=== PATIENT | female | born 1985 | race Two or more races ===

== ENCOUNTER 2017-04-24 06:31 | Inpatient (IN) | payer MEDICAID, OTHER ==
[~2017-04-24] VITALS: Ht 160 cm; Wt 60.1 kg
[2017-04-24 06:47] VITALS: BP 127/63; PULSE 72; RESP 16; TEMP 98.7; O2SAT 100
[2017-04-24 07:01] LABS: AUTOMATED NEUTROPHIL # 6.9 TH/MM3 (1.8-7.7); BASOPHIL % 0.2 % (0.0-2.0); HEMATOCRIT 38.5 % (35.0-46.0); HEMO FLAGS DIFF FINAL; LYMPHOCYTE # 1.6 TH/MM3 (1.0-4.8); MEAN CELL VOLUME 84.5 FL (80.0-100.0); MEAN CORPUSCULAR HEMOGLOBIN 28.3 PG (27.0-34.0); MEAN CORPUSCULAR HGB CONC 33.5 % (32.0-36.0); MONO % 8.6 % (0.0-8.0); NEUT % 74.2 % (16.0-70.0); PLATELET COUNT 215 TH/MM3 (150-450); RED BLOOD COUNT 4.56 MIL/MM3 (4.00-5.30); RED CELL DISTRIBUTION WIDTH 14.2 % (11.6-17.2); WHITE BLOOD COUNT 9.4 TH/MM3 (4.0-11.0)
--- NOTE | 2017-04-24 07:20 | PD ---
HPI Chief Complaint: Psychiatric Symptoms Time Seen by Provider: 07:10 Travel History International Travel<30 days: No Contact w/Intl Traveler<30days: No Traveled to known affect area: No History of Present Illness HPI 32-year-old female presents to the emergency department under [place] act. Apparently the patient's in the past few days and she is here with her brother. According to law enforcement report her brother, Francisco J Davis, contacted the police because his sister, the patient, was "going to [employer] in [facility] on [address] to commit suicide." The patient herself also called dispatchers and stated she "was going to and that people were going to shoot her, and that she had her kids in the car." [facility] attempted a traffic stop to conduct a welfare check, but the patient did not stop and proceeded driving [address]bound on . 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 She continues to answer "I don't know" when I asked her what happened. She is alert and oriented to time and self. She is not oriented to place. She does not know where she is. She does know she is in [place]. She says she is here visiting a friend. She denies being suicidal or homicidal; he does not recall making any statements that she wanted to . When I ask her about her she says that he has but she doesn't recall when. She reports feeling depressed and says she has history of depression without medication. Reports hearing voices at times. Denies visual hallucinations. Denies EtOH or illicit drug use. Last menstrual period was last month. Denies risk of . States she has twin girls that are 7 years old. She does state that she is hungry and feels dizzy. She has no other medical complaints. She denies chest pain, shortness of breath, abdominal pain, change in urinary stool. No known relieving or aggravating factors. No known allergies. Has no other medical complaints. No other modifying factors or associated signs and symptoms. [facility] Past Medical History Medical History: Denies Significant Hx Immunizations Current: Yes ?: Not LMP: 03/27/17 Past Surgical History Surgical History: No Previous Surgery Social History Alcohol Use: Yes Tobacco Use: No Substance Use: No Allergies-Medications (Allergen,Severity, Reaction): Coded Allergies: No Known Allergies (Unverified , 04/24/17) Reported Meds & Prescriptions Reported Meds & Active Scripts Active No Active Prescriptions or Reported Medications Review of Systems Except as stated in HPI: all other systems reviewed are Neg Physical Exam Narrative GENERAL: Well-nourished, well-developed female patient, in no acute distress SKIN: Warm and dry. HEAD: Atraumatic. Normocephalic. EYES: Pupils equal and round. ENT: Mucosa pink and moist. NECK: Supple. Trachea midline. CARDIOVASCULAR: Regular rate and rhythm. No murmur appreciated. RESPIRATORY: No accessory muscle use. Clear to auscultation. Breath sounds equal bilaterally. GASTROINTESTINAL: Abdomen soft, non-tender, nondistended. Hepatic and splenic margins not palpable. Bowel sounds are active 4 quadrants. MUSCULOSKELETAL: No obvious deformities. No clubbing. No cyanosis. No edema. BACK: No CVA tenderness. NEUROLOGICAL: Awake and alert. Oriented 3; self, time, President. No obvious cranial nerve deficits. Motor grossly within normal limits. Normal speech. Moves all extremities. 5/5 strength to all extremities. PSYCHIATRIC: Flat affect. No delusional thought processes. No hallucinations. Data Data Last Documented VS Vital Signs Date Time Temp Pulse Resp B/P (MAP) Pulse Ox O2 Delivery O2 Flow Rate FiO2 04/24/17 06:47 98.7 72 16 127/63 (84) 100 Orders Orders Complete Blood Count With Diff (04/24/17 06:45) Comprehensive Metabolic Panel (04/24/17 06:45) Ed Urine Pregnancytest Poc (04/24/17 06:45) Psych Screen (04/24/17 06:45) Drug Screen, Random Urine (04/24/17 06:45) Alcohol (Ethanol) (04/24/17 06:45) Salicylates (Aspirin) (04/24/17 06:45) Tylenol (Acetaminophen) (04/24/17 06:45) Urinalysis - C+S If Indicated (04/24/17 07:19) Diet Regular Basic (04/24/17 Breakfast) Potassium Chloride (Kcl) (04/24/17 07:45) Ct Brain W/O Iv Contrast(Rout) (04/24/17 ) Labs Laboratory Tests Test 04/24/17 06:40 04/24/17 06:45 Urine Opiates Screen NEG Urine Barbiturates Screen NEG Urine Amphetamines Screen NEG Urine Benzodiazepines Screen NEG Urine Cocaine Screen NEG Urine Cannabinoids Screen NEG White Blood Count 9.4 TH/MM3 Red Blood Count 4.56 MIL/MM3 Hemoglobin 12.9 GM/DL Hematocrit 38.5 % Mean Corpuscular Volume 84.5 FL Mean Corpuscular Hemoglobin 28.3 PG Mean Corpuscular Hemoglobin Concent 33.5 % Red Cell Distribution Width 14.2 % Platelet Count 215 TH/MM3 Mean Platelet Volume 8.6 FL Neutrophils (%) (Auto) 74.2 % Lymphocytes (%) (Auto) 17.0 % Monocytes (%) (Auto) 8.6 % Eosinophils (%) (Auto) 0.0 % Basophils (%) (Auto) 0.2 % Neutrophils # (Auto) 6.9 TH/MM3 Lymphocytes # (Auto) 1.6 TH/MM3 Monocytes # (Auto) 0.8 TH/MM3 Eosinophils # (Auto) 0.0 TH/MM3 Basophils # (Auto) 0.0 TH/MM3 CBC Comment DIFF FINAL Differential Comment Blood Urea Nitrogen 7 MG/DL Creatinine 0.81 MG/DL Random Glucose 90 MG/DL Total Protein 7.9 GM/DL Albumin 4.3 GM/DL Calcium Level 9.0 MG/DL Alkaline Phosphatase 44 U/L Aspartate Amino Transf (AST/SGOT) 18 U/L Alanine Aminotransferase (ALT/SGPT) 21 U/L Total Bilirubin 1.2 MG/DL Sodium Level 138 MEQ/L Potassium Level 2.9 MEQ/L Chloride Level 106 MEQ/L Carbon Dioxide Level 22.2 MEQ/L Anion Gap 10 MEQ/L Estimat Glomerular Filtration Rate 82 ML/MIN Salicylates Level LESS THAN 1.7 MG/DL Acetaminophen Level LESS THAN 2.0 MCG/ML Ethyl Alcohol Level LESS THAN 3 MG/DL MDM Medical Decision Making Medical Screen Exam Complete: Yes Emergency Medical Condition: Yes Medical Record Reviewed: Yes Differential Diagnosis Psychosis, severe depression, suicidal ideation, medical clearance for psychiatric evaluation Narrative Course Patient presents under a Avina act. Physical examination and vital signs are essentially unremarkable. Patient has no medical complaints to report. Psych screen has been ordered. If the laboratory results are unremarkable, the patient will be medically cleared for psychiatric evaluation and disposition. 0745: CBC unremarkable. Potassium 2.9. 40 MEQ potassium chloride ordered. 0834: CT head normal Examination. Drug screen and EtOH negative. Diagnosis Primary Impression: Medical clearance for psychiatric admission Scripts No Active Prescriptions or Reported Meds Condition: Stable Jailene Ibarra Apr 24, 2017 07:20
[2017-04-24 07:36] LABS: ALKALINE PHOSPHATASE 44 U/L (45-117); ALT (GPT) 21 U/L (10-53); ANION GAP 10 MEQ/L (5-15); AST (GOT) 18 U/L (15-37); BICARBONATE 22.2 MEQ/L (21.0-32.0); BLOOD UREA NITROGEN 7 MG/DL (7-18); CHLORIDE 106 MEQ/L (98-107); GLOMERULAR FILTRATION RATE 82 ML/MIN (>89); SODIUM (NA) 138 MEQ/L (136-145); TOTAL BILIRUBIN ADULT 1.2 MG/DL (0.2-1.0)
[2017-04-24 07:38] LABS: ACETAMINOPHEN LESS THAN 2.0 MCG/ML (10.0-30.0); ALCOHOL LESS THAN 3 MG/DL (0-5)
[2017-04-24 07:40] LABS: POTASSIUM 2.9 MEQ/L (3.5-5.1)
[2017-04-24] MEDS ORDERED: POTASSIUM CHLORIDE 20 MEQ CONTROLLED RELEASE TAB PO ONE (07:45)
--- NOTE | 2017-04-24 08:09 | RADRPT ---
EXAM DATE/TIME: 04/24/2017 07:59 [facility] COMPARISON: No previous studies available for comparison. INDICATIONS : Altered mental staus. RADIATION DOSE: 48.73 CTDIvol (mGy) MEDICAL HISTORY : Psych issues SURGICAL HISTORY : None. ENCOUNTER: Initial ACUITY: 1 day PAIN SCALE: 0/10 LOCATION: cranial TECHNIQUE: Multiple contiguous axial images were obtained of the head. Using automated exposure control and adj ustment of the mA and/or kV according to patient size, radiation dose was kept as low as reasonably a chievable to obtain optimal diagnostic quality images. DICOM format image data is available electro nically for review and comparison. FINDINGS: CEREBRUM: The ventricles are normal for age. No evidence of midline shift, mass lesion, hemorrhage or acute in farction. No extra-axial fluid collections are seen. POSTERIOR FOSSA: The cerebellum and brainstem are intact. The 4th ventricle is midline. The cerebellopontine angle i s unremarkable. EXTRACRANIAL: The visualized portion of the orbits is intact. SKULL: The calvaria is intact. No evidence of skull fracture. CONCLUSION: Normal examination. Jaron Barr MD on April 24, 2017 at 8:05 Board Certified Radiologist. This report was verified electronically.
[2017-04-24 09:32] LABS: BACTERIA, URINE MOD /hpf; BLOOD, URINE TRACE (NEG); COMMENT (UR) CULTURE INDICATED; CULTURE IF INDICATED CULTURE INDICATED; GLUCOSE,URINE TRACE mg/dL (NEG); HYALINE CAST, URINE 3 /lpf (RARE); KETONE, URINE 80 mg/dL (NEG); MUCUS URINE FEW /lpf (OCC); NITRITE,URINE NEG (NEG); PH, URINE 5.5 (5.0-8.5); SQUAMOUS EPITHELIAL CELL URINE 2 /hpf (0-5); TRANSITIONAL EPI CELLS, URINE <1 /hpf; URINE COLOR YELLOW (YELLW/STRAW)
[2017-04-24 10:00] VITALS: BP 102/54; PULSE 94; RESP 20; TEMP 99.4; O2SAT 98
[2017-04-24] MEDS ORDERED: HALOPERIDOL LACTATE 5 MG/ML AMP IM ONE (10:15)
[2017-04-24] MEDS ORDERED: clonazePAM 1 MG TAB PO ONE (10:30)
[2017-04-24] MEDS: CEPHALEXIN MONOHYDRATE 500 MG CAP PO SCH ×3 (10:38→21:19)
[2017-04-24] MEDS ORDERED: LORazepam 2 MG/ML VIAL IM ONE (11:30)
[2017-04-24] MEDS ORDERED: LORazepam 2 MG/ML VIAL IM PRN (12:45)
[2017-04-24] MEDS ORDERED: ALUMINUM/MAGNESIUM/SIMETH 30 ML CUP PO PRN (12:45)
[2017-04-24] MEDS ORDERED: ACETAMINOPHEN 325 MG TAB PO PRN (12:45)
[2017-04-24] MEDS ORDERED: MAGNESIUM HYDROXIDE SUSP 30 ML CUP PO PRN (12:45)
[2017-04-24] MEDS ORDERED: LORazepam 1 MG TAB PO PRN (12:45)
--- NOTE | 2017-04-24 13:58 | PD.CONS ---
[facility] By [facility] Vall[facility] Reason for Consult Medical management Primary Care Physician No Primary Care Physician Diagnoses: History of Present Illness 32-year-old female brought to the emergency department under Avina act. The police were contacted by the patient's brother because the patient was supposedly going to commit suicide. The patient states she "only wants to talk to her children." She is crying and very upset that she is being kept here against her will. Lab work in the ED this morning was significant for a potassium of 2.9 and a UA consistent with urinary tract infection. [facility] consulted for medical management. Review of Systems Denies fever or chills Denies blurry vision, otorrhea, rhinorrhea Denies sore throat and cough No chest pain, palpitations, shortness of breath No abdominal pain Denies constipation/diarrhea/nausea/vomiting Denies muscle pain/weakness No rashes Past Family Social History Allergies: Coded Allergies: No Known Allergies (Unverified , 04/24/17) Past Medical History None Past Surgical History None Reported Medications None Family History Denies family history of coronary artery disease and diabetes mellitus. Social History Denies tobacco, alcohol and illicit drugs. Physical Exam Vital Signs Vital Signs Date Time Temp Pulse Resp B/P (MAP) Pulse Ox O2 Delivery O2 Flow Rate FiO2 04/24/17 10:00 99.4 94 20 102/54 (70) 98 Room Air 04/24/17 06:47 98.7 72 16 127/63 (84) 100 Physical Exam GENERAL: Agitated female crying, standing in her room SKIN: No rashes, ecchymoses or lesions. Cool and dry. HEAD: Atraumatic. Normocephalic. No temporal or scalp tenderness. EYES: Pupils equal round and reactive. Extraocular motions intact. No scleral icterus. No injection or drainage. ENT: Nose without bleeding, purulent drainage or septal hematoma. Throat without erythema, tonsillar hypertrophy or exudate. Uvula midline. Airway patent. NECK: Trachea midline. No JVD or lymphadenopathy. Supple, nontender, no meningeal signs. CARDIOVASCULAR: Regular rate and rhythm without murmurs, gallops, or rubs. RESPIRATORY: Clear to auscultation. Breath sounds equal bilaterally. No wheezes , rales, or rhonchi. GASTROINTESTINAL: Abdomen soft, non-tender, nondistended. No hepato-splenomegaly , or palpable masses. No guarding. : No CVA tenderness MUSCULOSKELETAL: Extremities without clubbing, cyanosis, or edema. No joint tenderness, effusion, or edema noted. No calf tenderness. Negative Homans sign bilaterally. NEUROLOGICAL: Awake and alert. Cranial nerves II through XII intact. Motor and sensory grossly within normal limits. Pressured speech. Patient oriented to self and states she is in [place]. Inappropriate insight and judgment. Laboratory Laboratory Tests Test 04/24/17 06:40 04/24/17 06:45 Urine Color YELLOW Urine Turbidity CLEAR Urine pH 5.5 Urine Specific Paton 1.018 Urine Protein TRACE Urine Glucose (UA) TRACE Urine Ketones 80 Urine Occult Blood TRACE Urine Nitrite NEG Urine Bilirubin NEG Urine Urobilinogen LESS THAN 2.0 Urine Leukocyte Esterase TRACE Urine RBC 1 Urine WBC 3 Urine Squamous Epithelial Cells 2 Urine Transitional Epithelial Cells <1 Urine Amorphous Sediment RARE Urine Bacteria MOD Urine Hyaline Casts 3 Urine Mucus FEW Microscopic Urinalysis Comment CULTURE INDICATED Urine Opiates Screen NEG Urine Barbiturates Screen NEG Urine Amphetamines Screen NEG Urine Benzodiazepines Screen NEG Urine Cocaine Screen NEG Urine Cannabinoids Screen NEG White Blood Count 9.4 Red Blood Count 4.56 Hemoglobin 12.9 Hematocrit 38.5 Mean Corpuscular Volume 84.5 Mean Corpuscular Hemoglobin 28.3 Mean Corpuscular Hemoglobin Concent 33.5 Red Cell Distribution Width 14.2 Platelet Count 215 Mean Platelet Volume 8.6 Neutrophils (%) (Auto) 74.2 Lymphocytes (%) (Auto) 17.0 Monocytes (%) (Auto) 8.6 Eosinophils (%) (Auto) 0.0 Basophils (%) (Auto) 0.2 Neutrophils # (Auto) 6.9 Lymphocytes # (Auto) 1.6 Monocytes # (Auto) 0.8 Eosinophils # (Auto) 0.0 Basophils # (Auto) 0.0 CBC Comment DIFF FINAL Differential Comment Blood Urea Nitrogen 7 Creatinine 0.81 Random Glucose 90 Total Protein 7.9 Albumin 4.3 Calcium Level 9.0 Alkaline Phosphatase 44 Aspartate Amino Transf (AST/SGOT) 18 Alanine Aminotransferase (ALT/SGPT) 21 Total Bilirubin 1.2 Sodium Level 138 Potassium Level 2.9 Chloride Level 106 Carbon Dioxide Level 22.2 Anion Gap 10 Estimat Glomerular Filtration Rate 82 Salicylates Level LESS THAN 1.7 Acetaminophen Level LESS THAN 2.0 Ethyl Alcohol Level LESS THAN 3 Date/Time Source Procedure Growth Status 04/24/17 06:40 Urine Random Urine Urine Culture Pending Received Result Diagram: 04/24/17 0645 04/24/1745 Assessment and Plan Assessment and Plan 32-year-old female with no past medical history presents under Avina act. [facility] consulted for medical management. 1. Suicidal ideation/psychosis Management per psychiatry 2. Hypokalemia Potassium 2.9 Status post by mouth supplementation in the ED Follow-up BMP 3. UTI UA consistent with urinary tract infection Urine cultures pending Continue Keflex, follow-up urine cultures Rachelle Morin MD Apr 24, 2017 13:58
[2017-04-24 14:15] VITALS: BP 123/67; PULSE 74; RESP 16; TEMP 98.3; O2SAT 97
[2017-04-25 06:24] VITALS: BP 117/67; PULSE 98; RESP 17; TEMP 98; O2SAT 97
[2017-04-25] MEDS: CEPHALEXIN MONOHYDRATE 500 MG CAP PO SCH ×3 (08:11→20:48)
--- NOTE | 2017-04-25 11:11 | PD.TTN ---
Patient Problems 1. Discharge planning 2. Medication compliance 3. Knowledge deficit 4. Lack of coping skills Progress Toward Goals Provider Present: Dr. Luis Alfredo Lozano Provider Input: Pt is new to the unit and will be evaluated including medication regiment. Nurse(s) Present: [place] Nurse(s) Input: Pt is new to the unit and is being evaluated and monitored. Psychiatric Counselors Present: TIMO Riley Psych Therapist Input: Pt is new and will be evaluated using biopsychosocial assessment. Group Spec/RT/OT/ORELLANA Present: REYNA Rader Group Spec/RT/OT/ORELLANA Input: Pt is new and will be encouraged to attend unit activities. Pt will be evaluated as well. Discharge Plan SMA Discharged planning will be finalized further as pt treatment continues. Documentation Scribe: TIMO Riley Jonathan LMHC Apr 25, 2017 11:11
--- NOTE | 2017-04-25 11:47 | HHI.HP ---
Provisional Diagnosis Admission Date Apr 24, 2017 at 12:33 [place] I. 1. Brief psychotic disorder Rule out primary psychotic disorder or mood disorder with psychotic features Rule out acute stress reaction/adjustment disorder [place] II. Deferred Certification of Person's Competence To Provide Express and Informed Consent I have personally examined Danni Edwards , a person being served at [facility] on, Apr 25, 2017 11:47. Express and informed consent means consent voluntarily given in writing, by a competent person, after sufficient explanation and disclosure of the subject matter involved to enable the person to make a knowing and willful decision without any element of force, fraud, deceit, duress, or other form of constraint or coercion. This person is 18 years of age or older, is not now known to be incompetent to consent to treatment with a guardian advocate, and does not have a health care surrogate or proxy currently making medical treatment decisions. I have found this person to be one of the following: [] Competent to provide express and informed consent, as defined above, for voluntary admission to this facility and is competent to provide express and informed consent for treatment. He/she has the consistent capacity to make well reasoned, willful, and knowing decisions concerning his or her medical or mental health treatment. The person fully and consistently understands the purpose of the admission for examination/placement and is fully capable of personally exercising all rights assured [place] [x] Incompetent to provide express and informed consent to voluntary admission, and this is incompetent to provide express and informed consent to treatment. The person must be transferred to involuntary status and a petition for a guardian advocate filed with the Circuit Court. [] Refusing to provide express and informed consent to voluntary admission but is competent to provide express and informed consent for treatment. The person must be discharged or transferred to involuntary status. Form shall be completed within 24 hours of a person's arrival at the receiving facility and filed in the clinical record of each person: 1. Admitted on a voluntary basis 2. Permitted to provide express and informed consent to his/her own treatment 3. Allowed to transfer from involuntary to voluntary status 4. Prior to permitting a person to consent to his or her own treatment after having been previously found incompetent to consent to treatment. History of Present Illness Capacity: Lacks Capacity HPI Ms. Edwards is a 32-year-old female of uncertain past psychiatric history who presents under a [place] act by law enforcement. Avina Act is quite extensive and alleges that patient's brother called in report that patient was suicidal, that patient herself called 911 and said people were trying to shoot her, and that patient was finally found topless in her car with her children in back seat. Psychiatric screener's note suggests that patient's recently . Reviewing our electronic medical record, it appears this is patient's first visit to [place]. Patient seen and examined with nurse. Chart reviewed. I see a completed 1st opinion from Dr. Valles, but there is no H&P from him. I have therefore seen patient for H&P today. Case discussed with nursing staff. Patient noted by nurse to be responding to internal stimuli. Patient's behavior on unit has reportedly been quite disturbed. She apparently tried to get into a peer's room overnight and was in fact found laying on the floor of peer's room. No fall reported, no sexual or other untoward activity reported between patient and this male peer. She also has been exit seeking. On my exam, patient seems fearful. She remains frankly internally stimulated and pulls her gown up over her face and ears, as if to try to block out voices. She answers "I don't know " to most of my questions. She denies SI/HI now and says that she wants to live for her children. She is able to recall that she has children but cannot recall their ages. She is tearful and her affect is dysphoric. She seems quite paranoid. She remains exit seeking and tries to get the nurse and myself to take her off the unit for the interview. Psychiatric interview somewhat limited because of patient's degree of psychiatric impairment at present. No physical complaints. Past psychiatric history: Patient is unsure of previous psychiatric diagnoses. She does not remember whether she has a history of psychiatric admissions. She does not remember whether she has a history of suicide attempts. Given the patient's degree of psychiatric impairment of present I did endeavor to obtain collateral information from the patient's mother at the number listed in the EMR. I left a generic voicemail requesting a call back. Review of Systems ROS Limitations: Psychotic, Poor Historian Except as stated in HPI: all other systems reviewed are Neg Past Psych History Psychological trauma history No reported trauma history to me Violence risk - others (6 mos) Indeterminate. Psychotic and unpredictable. Violence risk - self (6 mos) Indeterminate. Psychotic and unpredictable. Substance Abuse History Drugs/Alcohol past 12 months Patient denies any abuse of drugs or alcohol. Urine toxicology screen was negative on presentation here, and alcohol level was undetectable. Past Family Social History Coded Allergies: No Known Allergies (Unverified , 04/24/17) Past Medical History See electronic medical record. Patient says "I don't remember" whether she has any medical issues or not. No Active Prescriptions or Reported Meds Current Medications Medications (Trade) Dose Ordered Sig/Mauro Route Start Time Stop Time Status Last Admin (Keflex) 500 mg BID PO 04/24/17 10:00 05/01/17 09:59 04/24/17 10:38 (Ativan) 1 mg Q6H PRN PO 04/24/17 12:45 04/24/17 13:41 (Ativan Inj) 1 mg Q6H PRN IM 04/24/17 12:45 (Tylenol) 650 mg Q4H PRN PO 04/24/17 12:45 (Milk Of Magnesia Liq) 30 ml DAILY PRN PO 04/24/17 12:45 (Mag-Al Plus Susp Liq) 30 ml Q6H PRN PO 04/24/17 12:45 Family Psych History "I don't know." Social History Repeatedly answers variations on "I don't remember" when asked about aspects of the social history. Patient's Strengths (min. 2) In a monitored setting. Verbally fluent. Physical Exam Physical exam completed by hospitalist management consultant. On my examination today, the patient appears to be in no acute physical distress. No motor abnormalities noted. Labs and vitals reviewed: Vital Signs Vital Signs Date Time Temp Pulse Resp B/P (MAP) Pulse Ox O2 Delivery O2 Flow Rate FiO2 04/25/17 06:24 98.0 98 17 117/67 (84) 97 04/24/17 10:00 Room Air Lab Results Item Value Date Time White Blood Count 9.4 TH/MM3 04/24/17 0645 Hemoglobin 12.9 GM/DL 04/24/17 0645 Platelet Count 215 TH/MM3 04/24/17 0645 Sodium Level 138 MEQ/L 04/24/17 0645 Potassium Level 2.9 MEQ/L *L 04/24/17 0645 Chloride Level 106 MEQ/L 04/24/17 0645 Carbon Dioxide Level 22.2 MEQ/L 04/24/17 0645 Blood Urea Nitrogen 7 MG/DL 04/24/17 0645 Creatinine 0.81 MG/DL 04/24/17 0645 Aspartate Amino Transf (AST/SGOT) 18 U/L 04/24/17 0645 Alanine Aminotransferase (ALT/SGPT) 21 U/L 04/24/17 0645 Alkaline Phosphatase 44 U/L L 04/24/17 0645 Urine Opiates Screen NEG 04/24/17 0640 Urine Barbiturates Screen NEG 04/24/17 0640 Urine Amphetamines Screen NEG 04/24/17 0640 Urine Benzodiazepines Screen NEG 04/24/17 0640 Urine Cocaine Screen NEG 04/24/17 06 Urine Cannabinoids Screen NEG 04/24/17 0640 Ethyl Alcohol Level LESS THAN 3 MG/DL 04/24/17 0645 Labs reviewed. Hypokalemia noted, repleted. Last Impressions Head CT 04/24/17 0000 Signed Impressions: Service Date/Time: Monday, April 24, 2017 07:59 - CONCLUSION: Normal examination. Jaron Barr MD UA reviewed. +LE but no pyuria. Cultures prelim negative x 24 hours. ED [id number] test negative. Labs ordered by Dr. Valles are listed as "in process." Mental Status Examination Appearance: Disheveled Consciousness: Alert, Vigilant Orientation: Person Motor Activity: Normal gait Speech: Unremarkable Language: Perseveration Attention and Concentration: Easily Distracted Memory: Impaired Mood: Other (dysphoric) Affect: Other (restricted, tearful) Thought Process & Associations: Disorganized Thought Content: Bizarre thinking, Hallucinations Hallucination Type: Auditory (appears frankly internally stimulated) Delusion Type: Paranoid Suicidal Ideation: No (unreliable to contract for safety) Suicidal Plan: No Suicidal Intention: No Homicidal Ideation: No (unreliable to contract for safety) Homicidal Plan: No Homicidal Intention: No Insight: Poor Judgment: Poor Assessment & Plan Problem List: (1) Brief psychotic disorder ICD Codes: F23 - Brief psychotic disorder Assessment & Plan 32-year-old female with psychiatric history as detailed above who is presently admitted to the inpatient psychiatric unit under a Avina act. On my examination today, the patient is floridly psychotic. Unclear if the patient has an underlying psychotic illness or possibly a mood disorder with psychotic features, or if current symptomatology is reflective of an acute stress reaction or adjustment disorder. Nothing in medical workup suggestive of general medical cause, and patient's urine toxicology is negative and she herself denies substance use. I will plan to admit the patient to the inpatient psychiatric unit for safety, observation and stabilization. Admit inpatient. Involuntary status. Since it is not clear that Dr. Valles evaluated patient, I have completed a new first opinion based on my own assessment. Consult for second opinion. Request healthcare surrogate and guardian advocate. Follow-up laboratories ordered by Dr. Valles. Patient refused EKG, and we will try to obtain this later when she is less symptomatic with respect to her psychosis. For her psychotic symptoms, I will begin empiric treatment with Zyprexa 5mg PO/IM. Continue Ativan as needed for anxiety. I will add Benadryl for any EPS. Continue Keflex pending final result of urine culture, although patient does not appear to have a UTI. Hospitalist input noted and appreciated. Given behavior on unit and unpredictability in her psychotic state, institute 1:1 precautions until condition improves. Vitals every shift. Counselor to see and obtain collateral. Disposition planning. Estimated length of stay: 7-9 days. Discharge Planning Pending psychiatric stabilization Request HC Surrog/Guard Advoc?: Yes Cristian Lozano MD Apr 25, 2017 11:47
[2017-04-25] MEDS ORDERED: diphenhydrAMINE HCL 50 MG CAP PO PRN (14:45)
[2017-04-25] MEDS ORDERED: diphenhydrAMINE HCL 50 MG/ML VIAL IM PRN (14:45)
[2017-04-25] MEDS ORDERED: OLANZapine IM 10 MG VIAL IM PRN (14:45)
[2017-04-25 17:33] VITALS: BP 113/56; PULSE 64; RESP 18; TEMP 98; O2SAT 99
[2017-04-25] MEDS: OLANZapine ODT 5 MG TAB PO SCH (20:48)
[2017-04-26 05:38] VITALS: BP 106/71; PULSE 63; RESP 16; TEMP 98; O2SAT 100
[2017-04-26] MEDS: CEPHALEXIN MONOHYDRATE 500 MG CAP PO SCH (09:00)
[2017-04-26 09:10] LABS: HEMATOCRIT 41.2 % (35.0-46.0); MEAN CELL VOLUME 84.7 FL (80.0-100.0); MEAN CORPUSCULAR HEMOGLOBIN 27.8 PG (27.0-34.0); MEAN CORPUSCULAR HGB CONC 32.9 % (32.0-36.0); PLATELET COUNT 201 TH/MM3 (150-450); RED BLOOD COUNT 4.86 MIL/MM3 (4.00-5.30); RED CELL DISTRIBUTION WIDTH 14.2 % (11.6-17.2); REVIEW FLAG FINAL; WHITE BLOOD COUNT 6.2 TH/MM3 (4.0-11.0)
[2017-04-26 09:41] LABS: ANION GAP 11 MEQ/L (5-15); BICARBONATE 25.5 MEQ/L (21.0-32.0); BLOOD UREA NITROGEN 8 MG/DL (7-18); CHLORIDE 104 MEQ/L (98-107); GLOMERULAR FILTRATION RATE 75 ML/MIN (>89); POTASSIUM 3.1 MEQ/L (3.5-5.1); SODIUM (NA) 140 MEQ/L (136-145)
[2017-04-26 09:42] LABS: ALT (GPT) 19 U/L (10-53); AST (GOT) 15 U/L (15-37)
[2017-04-26 10:08] LABS: ALKALINE PHOSPHATASE 44 U/L (45-117); HDL CHOLESTEROL 56.5 MG/DL (40.0-60.0); LDL CHOLESTEROL 112 MG/DL (0-99); TOTAL BILIRUBIN ADULT 1.4 MG/DL (0.2-1.0)
--- NOTE | 2017-04-26 11:26 | HHI.PYPN ---
Subjective Remarks Patient seen and examined with nurse. Chart reviewed. Case discussed in treatment team. On my examination today, I find the patient laying in bed with her head covered. She remains internally stimulated and fearful. She continues to answer questions for the most part with "I don't know." She denies any suicidal or homicidal ideation. She complains of some dizziness but otherwise denies side effects from medications. No other physical complaints. We checked orthostatics and patient is not orthostatic by BP or HR, and call to RN in afternoon reveals that patient is no longer complaining of dizziness. Review of Systems ROS Limitations: Psychotic, Poor Historian Except as stated in HPI: all other systems reviewed are Neg Mental Status Examination Appearance: Disheveled Consciousness: Alert, Vigilant Orientation: Person Motor Activity: Other (no hand tremor, no dystonia, no dyskinesia noted. No other motoric abnormalities noted.) Speech: Unremarkable Language: Perseveration Attention and Concentration: Easily Distracted Memory: Impaired Mood: Other (dysphoric) Affect: Other (restricted) Thought Process & Associations: Disorganized Thought Content: Bizarre thinking, Hallucinations, Delusional Hallucination Type: Other (internally stimulated) Delusion Type: Paranoid Suicidal Ideation: No (unreliable to contract for safety) Suicidal Plan: No Suicidal Intention: No Homicidal Ideation: No (unreliable to contract for safety) Homicidal Plan: No Homicidal Intention: No Insight: Poor Judgment: Poor Results Labs Test 04/26/17 08:27 White Blood Count 6.2 TH/MM3 Red Blood Count 4.86 MIL/MM3 Hemoglobin 13.5 GM/DL Hematocrit 41.2 % Mean Corpuscular Volume 84.7 FL Mean Corpuscular Hemoglobin 27.8 PG Mean Corpuscular Hemoglobin Concent 32.9 % Red Cell Distribution Width 14.2 % Platelet Count 201 TH/MM3 Mean Platelet Volume 8.7 FL Blood Urea Nitrogen 8 MG/DL Creatinine 0.88 MG/DL Random Glucose 99 MG/DL Total Protein 7.6 GM/DL Albumin 4.0 GM/DL Calcium Level 8.9 MG/DL Alkaline Phosphatase 44 U/L Aspartate Amino Transf (AST/SGOT) 15 U/L Alanine Aminotransferase (ALT/SGPT) 19 U/L Total Bilirubin 1.4 MG/DL Sodium Level 140 MEQ/L Potassium Level 3.1 MEQ/L Chloride Level 104 MEQ/L Carbon Dioxide Level 25.5 MEQ/L Anion Gap 11 MEQ/L Estimat Glomerular Filtration Rate 75 ML/MIN Triglycerides Level 50 MG/DL Cholesterol Level 178 MG/DL LDL Cholesterol 112 MG/DL HDL Cholesterol 56.5 MG/DL Cholesterol/HDL Ratio 3.15 RATIO Vitamin B12 Level 1061 PG/ML 25-Hydroxy Vitamin D Total 23.7 ng/ML Thyroid Stimulating Hormone 3rd Gen 1.860 uIU/ML Date/Time Source Procedure Growth Status 04/24/17 06:40 Urine Random Urine Urine Culture - Final 50-100,000 CFU/ML MIXED GRAM POSITIVE... Complete Labs reviewed. Urine culture reveals mixed cristobal. Ongoing hypokalemia, repleted. Decreased GFR. Vitamin D somewhat decreased and calcium level within normal limits. Vitals/IOs Vital Signs Date Time Temp Pulse Resp B/P (MAP) Pulse Ox O2 Delivery O2 Flow Rate FiO2 04/26/17 05:38 98.0 63 16 106/71 (83) 100 04/24/17 10:00 Room Air Assessment & Plan Problem List: (1) Brief psychotic disorder ICD Codes: F23 - Brief psychotic disorder Assessment & Plan: Dr. Buenrostro has suggested adding fugue state to differential. Psychotic symptoms remain prominent, and so I place dissociative phenomenon somewhat lower on the differential. Assessment & Plan In light of mild, transient dizziness I will continue Zyprexa as ordered for now with plans to titrate to target psychotic symptoms as tolerated. Check RPR and HIV as part of psychosis workup in addition to workup already performed. We will try to obtain EKG today for QTc. Replete K and check BMP and Mg in morning. Encourage fluids. Vitamin D supplement. D/c Keflex as culture is not consistent with UTI. Continue 1:1 for now; reassess tomorrow. Fall prec. Continue to monitor on the high acuity unit. Continue other medications and care as ordered. Justification for Cont. Inpt. Impairment in reality construction. Risk for decompensation and less restrictive environment. Discharge Planning Pending stabilization Request HC Surrog/Guard Advoc?: Yes Cristian Lozano MD Apr 26, 2017 11:26
[2017-04-26] MEDS ORDERED: POTASSIUM CHLORIDE 20 MEQ CONTROLLED RELEASE TAB PO ONE (11:30)
[2017-04-26 12:26] VITALS: BP_SYST 106; BP_SYST 108; BP_SYST 111; BP_DIAS 63; BP_DIAS 65; PULSE 78; PULSE 90; PULSE 93; RESP 18; TEMP 98
--- NOTE | 2017-04-26 12:57 | PD.PSY.CON ---
Provisional Diagnosis Admission Date Apr 24, 2017 at 12:33 [place] I. 1. Brief psychotic disorder Rule out primary psychotic disorder or mood disorder with psychotic features Rule out acute stress reaction/adjustment disorder [place] II. Deferred History of Present Illness Service Psychiatry Consult Requested By Dr. Lozano Reason for Consult Second opinion Primary Care Physician No Primary Care Physician HPI Ms. Edwards is a 32-year-old female of uncertain past psychiatric history who presents under a [place] act by law enforcement. Avina Act is quite extensive and alleges that patient's brother called in report that patient was suicidal, that patient herself called 911 and said people were trying to shoot her, and that patient was finally found topless in her car with her children in back seat. Psychiatric screener's note suggests that patient's recently . Reviewing our electronic medical record, it appears this is patient's first visit to [place]. Patient seen and examined with nurse. Chart reviewed. I see a completed 1st opinion from Dr. Valles, but there is no H&P from him. I have therefore seen patient for H&P today. Case discussed with nursing staff. Patient noted by nurse to be responding to internal stimuli. Patient's behavior on unit has reportedly been quite disturbed. She apparently tried to get into a peer's room overnight and was in fact found laying on the floor of peer's room. No fall reported, no sexual or other untoward activity reported between patient and this male peer. She also has been exit seeking. On my exam, patient seems fearful. She remains frankly internally stimulated and pulls her gown up over her face and ears, as if to try to block out voices. She answers "I don't know " to most of my questions. She denies SI/HI now and says that she wants to live for her children. She is able to recall that she has children but cannot recall their ages. She is tearful and her affect is dysphoric. She seems quite paranoid. She remains exit seeking and tries to get the nurse and myself to take her off the unit for the interview. Psychiatric interview somewhat limited because of patient's degree of psychiatric impairment at present. No physical complaints. Past psychiatric history: Patient is unsure of previous psychiatric diagnoses. She does not remember whether she has a history of psychiatric admissions. She does not remember whether she has a history of suicide attempts. Given the patient's degree of psychiatric impairment of present I did endeavor to obtain collateral information from the patient's mother at the number listed in the EMR. I left a generic voicemail requesting a call back. 04/26/17 - second opinion Patient is a 32-year-old woman unknown if domiciled, reported have 2 children, with unclear past psychiatric history, was brought in under [facility] for suicidal ideation after brother was concerned and called 911. As per chart patient was found topless in her car with the children in the backseat, recently , and patient endorsing paranoid ideations of people trying to shoot her. Patient was found sitting in the room, cooperative interview was telegraphic typewriter installer and nurse. Patient states that she does not remember anything prior to hospitalization. When asked to recall last event prior to coming to the hospital that she wears currently patient states "I don't know". Patient reports sleeping well, good appetite, mood being "good", endorses feeling sad and depressed along with feeling helpless and hopeless but denied any suicide ideations at this time.. Patient states he does not remember ages of her 2 daughters. When asked where she lives she states she does not remember when asked who her family is aware she was born any information to evaluate remote memory along with recent memory she states "I don't know". Patient alert and oriented to person at this time. Past Family Social History Coded Allergies: No Known Allergies (Unverified , 04/24/17) No Active Prescriptions or Reported Meds Current Medications Medications (Trade) Dose Ordered Sig/Mauro Route Start Time Stop Time Status Last Admin (Keflex) 500 mg BID PO 04/24/17 10:00 05/01/17 09:59 04/26/17 09:00 (Ativan) 1 mg Q6H PRN PO 04/24/17 12:45 04/24/17 13:41 (Ativan Inj) 1 mg Q6H PRN IM 04/24/17 12:45 (Tylenol) 650 mg Q4H PRN PO 04/24/17 12:45 (Milk Of Magnesia Liq) 30 ml DAILY PRN PO 04/24/17 12:45 (Mag-Al Plus Susp Liq) 30 ml Q6H PRN PO 04/24/17 12:45 (ZyPREXA ZYDIS ODT) 5 mg HS PO 04/25/17 21:00 04/25/17 20:48 (ZyPREXA INJ) 5 mg HS PRN IM 04/25/17 14:45 (Benadryl) 50 mg Q6H PRN PO 04/25/17 14:45 04/25/17 20:48 (Benadryl Inj) 50 mg Q6H PRN IM 04/25/17 14:45 Patient's Strengths (min. 2) In a monitored setting. Verbally fluent. Physical Exam Vital Signs Vital Signs Date Time Temp Pulse Resp B/P (MAP) Pulse Ox O2 Delivery O2 Flow Rate FiO2 04/26/17 12:26 98.0 78 18 106/65 (79) 111/63 (79) 108/63 (78) 04/26/17 05:38 100 04/24/17 10:00 Room Air Lab Results Test 04/26/17 08:27 White Blood Count 6.2 TH/MM3 Red Blood Count 4.86 MIL/MM3 Hemoglobin 13.5 GM/DL Hematocrit 41.2 % Mean Corpuscular Volume 84.7 FL Mean Corpuscular Hemoglobin 27.8 PG Mean Corpuscular Hemoglobin Concent 32.9 % Red Cell Distribution Width 14.2 % Platelet Count 201 TH/MM3 Mean Platelet Volume 8.7 FL Blood Urea Nitrogen 8 MG/DL Creatinine 0.88 MG/DL Random Glucose 99 MG/DL Total Protein 7.6 GM/DL Albumin 4.0 GM/DL Calcium Level 8.9 MG/DL Alkaline Phosphatase 44 U/L Aspartate Amino Transf (AST/SGOT) 15 U/L Alanine Aminotransferase (ALT/SGPT) 19 U/L Total Bilirubin 1.4 MG/DL Sodium Level 140 MEQ/L Potassium Level 3.1 MEQ/L Chloride Level 104 MEQ/L Carbon Dioxide Level 25.5 MEQ/L Anion Gap 11 MEQ/L Estimat Glomerular Filtration Rate 75 ML/MIN Triglycerides Level 50 MG/DL Cholesterol Level 178 MG/DL LDL Cholesterol 112 MG/DL HDL Cholesterol 56.5 MG/DL Cholesterol/HDL Ratio 3.15 RATIO Vitamin B12 Level 1061 PG/ML 25-Hydroxy Vitamin D Total 23.7 ng/ML Thyroid Stimulating Hormone 3rd Gen 1.860 uIU/ML Date/Time Source Procedure Growth Status 04/24/17 06:40 Urine Random Urine Urine Culture - Final 50-100,000 CFU/ML MIXED GRAM POSITIVE... Complete Mental Status Examination Appearance: Disheveled Consciousness: Alert, Vigilant Orientation: Person Motor Activity: Normal gait Speech: Unremarkable Language: Perseveration Attention and Concentration: Easily Distracted Memory: Impaired Mood: Other (dysphoric) Affect: Other (restricted) Thought Process & Associations: Disorganized Thought Content: Bizarre thinking, Hallucinations Hallucination Type: Auditory (appears frankly internally stimulated but denies) Delusion Type: Paranoid Suicidal Ideation: No (unreliable to contract for safety) Suicidal Plan: No Suicidal Intention: No Homicidal Ideation: No (unreliable to contract for safety) Homicidal Plan: No Homicidal Intention: No Insight: Poor Judgment: Poor Assessment & Plan Problem List: (1) Brief psychotic disorder ICD Codes: F23 - Brief psychotic disorder Assessment & Plan Patient seen for second opinion. I have seen and examined this patient, reviewed the documentation, discussed personally with Dr. Lozano, and I agree concur with assessment and plan. Consult appreciated. Request HC Surrog/Guard Advoc?: Yes Jaron Buenrostro MD Apr 26, 2017 12:57
--- NOTE | 2017-04-26 15:19 | PD.TTN ---
Patient Problems 1. Discharge planning 2. Medication compliance 3. Knowledge deficit 4. Lack of coping skills Progress Toward Goals Provider Present: Dr. Luis Alfredo Lozano Provider Input: 04-25-17 - Patient appears to be responding to internal stimuli. She has a history of one prevous psychiatric admission in [facility]. Pt is new to the unit and will be evaluated including medication regiment. Nurse(s) Present: Pacheco Nurse(s) Input: Pt is new to the unit and is being evaluated and monitored. Psychiatric Counselors Present: TIMO Riley Psych Therapist Input: Patient is unable to reach her family and can not recall anything except that she has two kids. Patient is afraid to be in her room. Pt is new and will be evaluated using biopsychosocial assessment. Group Spec/RT/OT/ORELLANA Present: REYNA Rader Group Spec/RT/OT/ORELLANA Input: 04-26-17 - Patient does not participate. Pt is new and will be encouraged to attend unit activities. Pt will be evaluated as well. Discharge Plan SMA Discharged planning will be finalized further as pt treatment continues. Documentation Scribe: TIMO Riley, DEE Handley Date Resolved: Apr 26, 2017 Ava Kang Apr 26, 2017 15:19
[2017-04-26 16:32] LABS: HEMOGLOBIN A1b 1.4 %; HEMOGLOBIN Ao 86.6 %; HEMOGLOBIN LA1C 1.9 %; HEMOGLOBIN P3 3.4 %
--- NOTE | 2017-04-26 17:19 | HHI.PR ---
Subjective Remarks doing very well today- cleared and less confused but says "I don't know " ate good, taking shower by herself per staff- no reported diarrhea, nausea or vomiting Objective Vitals Vital Signs Date Time Temp Pulse Resp B/P (MAP) Pulse Ox O2 Delivery O2 Flow Rate FiO2 04/26/17 12:26 93 04/26/17 12:26 98.0 78 18 106/65 (79) 111/63 (79) 108/63 (78) 04/26/17 12:26 90 04/26/17 05:38 98.0 63 16 106/71 (83) 100 04/25/17 17:33 98.0 64 18 113/56 (75) 99 Result Diagram: 04/26/17 0827 04/26/17 0827 Imaging Last Impressions Head CT 04/24/17 0000 Signed Impressions: Service Date/Time: Monday, April 24, 2017 07:59 - CONCLUSION: Normal examination. Jaron Barr MD Objective Remarks awake and alert, smiling, "I dont know" lungs clear regular rhythm abdomen soft, nontender extremities no edema A/P Assessment and Plan 32-year-old female with no past medical history presents under [place]. [facility] consulted for medical management. 1. Suicidal ideation/psychosis Management per psychiatry 2. Hypokalemia- up to 3.1 patient denies any diarrhea po replacement ff BMP 3. Pyuria- culture negative no need for antibiotics Keflex was DC patient up and ambulating Angely Powers MD Apr 26, 2017 17:19
[2017-04-26 17:45] VITALS: BP 106/54; PULSE 73; RESP 18; TEMP 98.2; O2SAT 100
[2017-04-26] MEDS ORDERED: POTASSIUM CHLORIDE 10 MEQ CONTROLLED RELEASE TAB PO ONE (21:00)
[2017-04-26] MEDS: OLANZapine ODT 5 MG TAB PO SCH (21:00)
[2017-04-27 06:06] VITALS: BP 101/55; PULSE 84; RESP 16; TEMP 98.3; O2SAT 100
[2017-04-27] MEDS: CHOLECALCIFEROL (VIT D3) 1000 UNIT TAB PO SCH (08:25)
--- NOTE | 2017-04-27 10:23 | EKG ---
Date Performed: 04/26/2017 Time Performed: 22:55:07 PTAGE: 32 years EKG: Sinus rhythm WITH SINUS ARRHYTHMIA NORMAL ECG NO PREVIOUS TRACING DOCTOR: Fernanda Zambrano Interpretating Date/Time 04/27/2017 10:22:42
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
[2017-04-27] MEDS ORDERED: OLANZapine IM 10 MG VIAL IM PRN (11:15)
--- NOTE | 2017-04-27 16:04 | HHI.PR ---
Subjective Remarks patient pleasant but states "I don't know to questions" appears comfortable up and ambulating around the hallway her brother called today and she did spoke to him per staff- she ate well Objective Vitals Vital Signs Date Time Temp Pulse Resp B/P (MAP) Pulse Ox O2 Delivery O2 Flow Rate FiO2 04/27/17 06:06 98.3 84 16 101/55 (70) 100 04/26/17 17:45 98.2 73 18 106/54 (71) 100 Result Diagram: 04/26/17 0827 04/26/17 0827 Imaging Last Impressions Head CT 04/24/17 0000 Signed Impressions: Service Date/Time: Monday, April 24, 2017 07:59 - CONCLUSION: Normal examination. Jaron Barr MD Objective Remarks awake and alert, "I dont know" no nuchal rigidity lungs clear regular rhythm abdomen soft, nontender. no CVA tenderness extremities no edema gait steady A/P Assessment and Plan 32-year-old female with no past medical history presents under [place] act. [facility] consulted for medical management. 1. Suicidal ideation/psychosis Management per psychiatry Neurology consulted 2. Hypokalemia- up to 3.1 patient denies any diarrhea give another 30 meq po x 1 recheck in am 3. Pyuria- culture negative no need for antibiotics CM asisting for DC planning patient up and ambulating Angely Powers MD Apr 27, 2017 16:04
[2017-04-27] MEDS ORDERED: POTASSIUM CHLORIDE 10 MEQ CONTROLLED RELEASE TAB PO ONE (16:15)
[2017-04-27 17:51] LABS: BICARBONATE 30.7 MEQ/L (21.0-32.0); POTASSIUM 3.6 MEQ/L (3.5-5.1)
[2017-04-27 18:00] VITALS: BP 99/66; PULSE 62; RESP 17; TEMP 98.2; O2SAT 99
[2017-04-27] MEDS: OLANZapine ODT 10 MG TAB PO SCH (21:00)
[2017-04-28 06:08] VITALS: BP 91/52; PULSE 52; RESP 16; TEMP 98.3; O2SAT 99
[2017-04-28] MEDS: CHOLECALCIFEROL (VIT D3) 1000 UNIT TAB PO SCH (08:36)
--- NOTE | 2017-04-28 09:52 | HHI.PYPN ---
Subjective Remarks Patient seen and case discussed with nursing staff. Chart reviewed. Per nursing, patient has been cooperative in no behavioral problem. She has been visiting with family. For me today, patient remains amnestic for most details of her history. She does recall that her family visited yesterday and says that there is an uncle Tuan with whom she might stay. No reported side effects from medications. No physical complaints voiced. Review of Systems ROS Limitations: Poor Historian Except as stated in HPI: all other systems reviewed are Neg Mental Status Examination Appearance: Appropriate Consciousness: Alert Orientation: Person Motor Activity: Other (no abnormal motor movements noted) Speech: Unremarkable Language: Adequate Attention and Concentration: Adequate Memory: Impaired Mood: Other (calm) Affect: Blunt Thought Process & Associations: Linear Thought Content: Other (Besides reported lacunae in memory, remains fairly appropriate overall) Hallucination Type: None Delusion Type: None Suicidal Ideation: No (no SI voiced) Homicidal Ideation: No (no HI voiced) Insight: Poor Judgment: Poor Results Labs Test 04/27/17 16:36 Blood Urea Nitrogen 9 MG/DL Creatinine 0.82 MG/DL Random Glucose 93 MG/DL Calcium Level 8.7 MG/DL Sodium Level 141 MEQ/L Potassium Level 3.6 MEQ/L Chloride Level 106 MEQ/L Carbon Dioxide Level 30.7 MEQ/L Anion Gap 4 MEQ/L Estimat Glomerular Filtration Rate 81 ML/MIN Magnesium Level 2.2 MG/DL Date/Time Source Procedure Growth Status 04/24/17 06:40 Urine Random Urine Urine Culture - Final 50-100,000 CFU/ML MIXED GRAM POSITIVE... Complete Labs reviewed. Hypokalemia resolved. Magnesium level within normal limits. Vitals/IOs Vital Signs Date Time Temp Pulse Resp B/P (MAP) Pulse Ox O2 Delivery O2 Flow Rate FiO2 04/28/17 08:02 04/28/17 06:08 98.3 52 16 99 04/24/17 10:00 Room Air Assessment & Plan Problem List: (1) Brief psychotic disorder ICD Codes: F23 - Brief psychotic disorder (2) Retrograde amnesia ICD Codes: R41.2 - Retrograde amnesia Assessment & Plan Patient seems to be slowly improving, and perhaps visits with family are helpful in jogging her memory. Continue Zyprexa as ordered. We might consider further titration of this agent. Continue one to one for now. Awaiting neurology input. Hospitalist input noted and appreciated. Continue other medications and care as ordered. Patient's case was presented to the [place] act court and continued for 2 weeks. Justification for Cont. Inpt. Risk for decompensation in less restrictive environment. Discharge Planning Pending stabilization. Request HC Surrog/Guard Advoc?: Yes Cristian Lozano MD Apr 28, 2017 09:52
--- NOTE | 2017-04-28 15:23 | HHI.PR ---
Subjective Remarks patient answers - but affect blunt seen with staff- she ate more today and up and ambulated around most of the morning denies any diarrhea, pain nausea or vomiting Objective Vitals Vital Signs Date Time Temp Pulse Resp B/P (MAP) Pulse Ox O2 Delivery O2 Flow Rate FiO2 04/28/17 08:02 04/28/17 06:08 98.3 52 16 91/52 (65) 99 04/27/17 18:00 98.2 62 17 99/66 (77) 99 Result Diagram: 04/26/17 0827 04/27/17 1636 Imaging Last Impressions Head CT 04/24/17 0000 Signed Impressions: Service Date/Time: Monday, April 24, 2017 07:59 - CONCLUSION: Normal examination. Jaron Barr MD Objective Remarks awake and alert, blunt affect no nuchal rigidity lungs clear regular rhythm- HR 74/min abdomen soft, nontender. no CVA tenderness extremities no edema gait steady A/P Assessment and Plan 32-year-old female with no past medical history presents under [place] act. [facility] consulted for medical management. 1. Suicidal ideation/psychosis Management per psychiatry Neurology consulted 2. Hypokalemia-corrected 3. Pyuria- culture negative patient asymptoamtic no need for antibiotics CM asisting for DC planning patient up and ambulating [facility] sings off. reconsult ifor any questions Angely Powers MD Apr 28, 2017 15:23
[2017-04-28] MEDS: OLANZapine ODT 10 MG TAB PO SCH (22:01)
[2017-04-29 06:56] VITALS: BP 92/51; PULSE 63; RESP 16; TEMP 98.1; O2SAT 100
[2017-04-29] MEDS: CHOLECALCIFEROL (VIT D3) 1000 UNIT TAB PO SCH (08:42)
--- NOTE | 2017-04-29 10:51 | PD.TTN ---
Patient Problems 1. Discharge planning 2. Medication compliance 3. Knowledge deficit 4. Lack of coping skills Progress Toward Goals Provider Present: Dr. Luis Alfredo Lozano Provider Input: 04-25-17 - Patient appears to be responding to internal stimuli. She has a history of one prevous psychiatric admission in [facility]. Pt is new to the unit and will be evaluated including medication regiment. 04/29/17 Pt is a vulnerable, Physician is treating psychotic d/o. She can return home to family upon discharge. Nurse(s) Present: Pacheco Nurse(s) Input: Pt is new to the unit and is being evaluated and monitored. Psychiatric Counselors Present: TIMO Riley Psych Therapist Input: Patient is unable to reach her family and can not recall anything except that she has two kids. Patient is afraid to be in her room. Pt is new and will be evaluated using biopsychosocial assessment. Group Spec/RT/OT/ORELLANA Present: REYNA Rader Group Spec/RT/OT/ORELLANA Input: 04-26-17 - Patient does not participate. Pt is new and will be encouraged to attend unit activities. Pt will be evaluated as well. 04/29/17 Pt is attending group. Discharge Plan SMA Discharged planning will be finalized further as pt treatment continues. Documentation Scribe: TIMO Riley, [facility] Kang [facility] Date Resolved: Apr 26, 2017 Andres Soriano Jr, ISH Apr 29, 2017 10:51
--- NOTE | 2017-04-29 12:35 | HHI.PYPN ---
Subjective Chief Complaint: Psychosis/amnesia Remarks Patient seen and examined with nurse. Chart reviewed. Case discussed with nursing staff and in treatment team. On my examination today, the patient is somewhat intrusive. She is discharge focused, but this seems to have a psychotic basis as she is fearful that she is going to . I try to question her as to why she feels she is going to , but she cannot provide a sensible reply. She remains tearful at intervals. Memory seems to be improving, and she says she is originally from [facility]. She also says that her mother and aunt visited last night. She denies any suicidal ideation and says "I love myself." No side effects from medications. No specific physical complaints besides some mild dizziness, and patient was not orthostatic when we checked this a few days ago. Review of Systems ROS Limitations: Psychotic, Poor Historian Except as stated in HPI: all other systems reviewed are Neg Mental Status Examination Appearance: Appropriate Consciousness: Alert Orientation: Person Motor Activity: Other (no abnormal motor movements noted) Speech: Unremarkable Language: Adequate Attention and Concentration: Adequate Memory: Impaired (improving) Mood: Other (somewhat dysphoric) Affect: Blunt (tearful at intervals) Thought Process & Associations: Linear Thought Content: Other (perseverative on discharge) Hallucination Type: None Delusion Type: Paranoid Suicidal Ideation: No (unreliable to contract for safety) Homicidal Ideation: No (no HI voiced) Insight: Poor Judgment: Poor Results Labs Date/Time Source Procedure Growth Status 04/24/17 06:40 Urine Random Urine Urine Culture - Final 50-100,000 CFU/ML MIXED GRAM POSITIVE... Complete Labs reviewed. No new labs. Vitals/IOs Vital Signs Date Time Temp Pulse Resp B/P (MAP) Pulse Ox O2 Delivery O2 Flow Rate FiO2 04/29/17 06:56 98.1 63 16 92/51 (65) 100 Intake and Output 04/29/17 04/29/17 04/30/17 08:00 16:00 00:00 Intake Total 240 ml Balance 240 ml Assessment & Plan Problem List: (1) Brief psychotic disorder ICD Codes: F23 - Brief psychotic disorder (2) Retrograde amnesia ICD Codes: R41.2 - Retrograde amnesia Assessment & Plan Patient is improving overall but has ongoing symptoms the present a barrier to safe discharge at this time. Titrate Zyprexa to 15mg total daily dose. Since BPs have been on the lower side I will administer this in divided dose and add BP parameters. If patient is not getting antipsychotic due to hypotension, please consider switching to a different agent. RN reports neuro in to see patient today, and I will follow up their recs. Continue 1:1; patient requires significant redirection at this time but could consider discontinuing this over weekend. Continue to monitor on the inpatient unit. Continue other medications and care as ordered. Justification for Cont. Inpt. Med changes. Risk for decompensation in less restrictive environment. Discharge Planning Possible discharge after weekend. Case d/w counselor. Request HC Surrog/Guard Advoc?: Yes Cristian Lozano MD Apr 29, 2017 12:35
[2017-04-29] MEDS ORDERED: LORazepam 2 MG/ML VIAL IV ONE (15:00)
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
[2017-04-29] MEDS ORDERED: GADODIAMIDE PF 287 MG/ML 10 ML VIAL (for RAD MRI) IVCONTRAST ONE (18:47)
[2017-04-29 18:56] VITALS: BP 112/77; PULSE 81; RESP 16; TEMP 98.4; O2SAT 100
[2017-04-29] MEDS: OLANZapine ODT 10 MG TAB PO SCH (21:38)
--- NOTE | 2017-04-29 22:16 | RADRPT ---
EXAM DATE/TIME: 04/29/2017 18:08 [facility] COMPARISON: No previous studies available for comparison. INDICATIONS : Memory loss; possible demyelinating disease CONTRAST: 10 cc Omniscan (gadodiamide) IV MEDICAL HISTORY : None. SURGICAL HISTORY : None. ENCOUNTER: Subsequent ACUITY: 4-6 days PAIN SCORE: 0/10 LOCATION: cranial TECHNIQUE: Multiplanar, multisequence MRI of the brain was performed both prior to and following the administrat ion of paramagnetic contrast. FINDINGS: CEREBRUM: The ventricles are normal for age. No evidence of midline shift, mass lesion, hemorrhage or acute in farction. No extraaxial fluid collections are seen. The pituitary gland and suprasellar cistern are normal in configuration. WHITE MATTER: No significant signal abnormalities are seen in the white matter. POSTERIOR FOSSA: The cerebellum and brainstem are intact. The 4th ventricle is midline. The cerebellopontine angle is unremarkable. The cerebellar tonsils are normal in position. DIFFUSION IMAGING: No focal areas of restricted diffusion are seen. No evidence of acute infarction. EXTRACRANIAL: The visualized portions of the orbits and paranasal sinuses are unremarkable. POST-CONTRAST: No abnormal areas of parenchymal or dural enhancement. No evidence of blood-brain barrier breakdown. CONCLUSION: No acute disease. Jacob Neil MD on April 29, 2017 at 22:13 Board Certified Radiologist. This report was verified electronically.
[2017-04-30 06:00] VITALS: BP 102/62; PULSE 73; RESP 16; TEMP 97.8; O2SAT 99
[2017-04-30] MEDS: CHOLECALCIFEROL (VIT D3) 1000 UNIT TAB PO SCH (09:00)
[2017-04-30] MEDS: OLANZapine ODT 5 MG TAB PO SCH (09:00)
[2017-04-30 09:20] LABS: BICARBONATE 24.8 MEQ/L (21.0-32.0); POTASSIUM 3.8 MEQ/L (3.5-5.1)
[2017-04-30 09:27] LABS: BETA HCG QUANT LESS THAN 1 MIU/ML (0-5)
--- NOTE | 2017-04-30 13:57 | HHI.PYPN ---
Subjective Chief Complaint: Psychosis/amnesia Remarks Patient was seen and case discussed with nursing. Patient is perseverant of discharge. She has very poor insight into her admission. She is speaking but is quite hesitant. Says she had a visit with her mom. Seclusive to self. Tolerating medications well Mental Status Examination Appearance: Appropriate Consciousness: Alert Orientation: Person Motor Activity: Other (no abnormal motor movements noted) Speech: Unremarkable Language: Adequate Attention and Concentration: Adequate Memory: Impaired (improving) Mood: Other (somewhat dysphoric) Affect: Blunt (tearful at intervals) Thought Process & Associations: Linear Thought Content: Other (perseverative on discharge) Hallucination Type: None Delusion Type: Paranoid Suicidal Ideation: No (unreliable to contract for safety) Homicidal Ideation: No (no HI voiced) Insight: Poor Judgment: Poor Results Labs Test 04/30/17 06:00 04/30/17 08:00 Erythrocyte Sedimentation Rate 3 mm/hr Blood Urea Nitrogen 11 MG/DL Creatinine 0.75 MG/DL Random Glucose 94 MG/DL Calcium Level 8.5 MG/DL Sodium Level 140 MEQ/L Potassium Level 3.8 MEQ/L Chloride Level 107 MEQ/L Carbon Dioxide Level 24.8 MEQ/L Anion Gap 8 MEQ/L Estimat Glomerular Filtration Rate 90 ML/MIN Human Chorionic Gonadotropin, Quant LESS THAN 1 MIU/ML Date/Time Source Procedure Growth Status 04/24/17 06:40 Urine Random Urine Urine Culture - Final 50-100,000 CFU/ML MIXED GRAM POSITIVE... Complete Vitals/IOs Vital Signs Date Time Temp Pulse Resp B/P (MAP) Pulse Ox O2 Delivery O2 Flow Rate FiO2 04/30/17 06:00 97.8 73 16 102/62 (75) 99 Intake and Output 04/30/17 04/30/17 05/01/17 08:00 16:00 00:00 Intake Total 360 ml Balance 360 ml Assessment & Plan Problem List: (1) Brief psychotic disorder ICD Codes: F23 - Brief psychotic disorder (2) Retrograde amnesia ICD Codes: R41.2 - Retrograde amnesia Assessment & Plan Continue current treatment plan Justification for Cont. Inpt. Patient would decompensate in a less restrictive setting Request HC Surrog/Guard Advoc?: Yes Sukhwinder Claudio DO Apr 30, 2017 13:57
[2017-04-30] MEDS: OLANZapine ODT 10 MG TAB PO SCH (21:15)
[2017-05-01 06:31] VITALS: BP 113/61; PULSE 61; RESP 18; TEMP 99.1; O2SAT 98
[2017-05-01] MEDS: OLANZapine ODT 5 MG TAB PO SCH (09:50)
[2017-05-01] MEDS: CHOLECALCIFEROL (VIT D3) 1000 UNIT TAB PO SCH (09:50)
--- NOTE | 2017-05-01 14:03 | HHI.PYPN ---
Subjective Chief Complaint: Psychosis/amnesia Remarks Patient was seen and case discussed with nursing. Today patient is apathetic with a flat affect. Again asking about discharge. Insight remains poor concerning her behavior before admission. Says she spoke to her family on the phone. Tolerating medications well. Nothing to report per one-to-one. No psychotic symptoms elicited Mental Status Examination Appearance: Appropriate Consciousness: Alert Orientation: Person Motor Activity: Other (no abnormal motor movements noted) Speech: Unremarkable Language: Adequate Attention and Concentration: Adequate Memory: Impaired (improving) Mood: Other (somewhat dysphoric) Affect: Blunt (tearful at intervals) Thought Process & Associations: Disorganized Thought Content: Other (perseverative on discharge) Hallucination Type: None Delusion Type: None Suicidal Ideation: No (unreliable to contract for safety) Suicidal Plan: No Suicidal Intention: No Homicidal Ideation: No (no HI voiced) Insight: Poor Judgment: Poor Results Labs Date/Time Source Procedure Growth Status 04/24/17 06:40 Urine Random Urine Urine Culture - Final 50-100,000 CFU/ML MIXED GRAM POSITIVE... Complete Vitals/IOs Vital Signs Date Time Temp Pulse Resp B/P (MAP) Pulse Ox O2 Delivery O2 Flow Rate FiO2 05/01/17 06:31 99.1 61 18 113/61 (78) 98 Assessment & Plan Problem List: (1) Brief psychotic disorder ICD Codes: F23 - Brief psychotic disorder (2) Retrograde amnesia ICD Codes: R41.2 - Retrograde amnesia Assessment & Plan Continue current treatment plan Justification for Cont. Inpt. Patient will decompensate in a less restrictive setting Request HC Surrog/Guard Advoc?: Yes Sukhwinder Claudio DO May 01, 2017 14:03
[2017-05-01 18:07] VITALS: BP 113/66; PULSE 69; RESP 17; TEMP 96; O2SAT 99
[2017-05-01] MEDS: OLANZapine ODT 10 MG TAB PO SCH (20:39)
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
[2017-05-02] MEDS: OLANZapine ODT 5 MG TAB PO SCH (08:56)
[2017-05-02] MEDS: CHOLECALCIFEROL (VIT D3) 1000 UNIT TAB PO SCH (08:56)
--- NOTE | 2017-05-02 10:31 | HHI.PYPN ---
Subjective Chief Complaint: Psychosis/amnesia Remarks Patient seen and examined with nurse. Chart reviewed. Case discussed with nursing staff. Patient remains on a one-to-one, although discussing the matter with her sitter it appears the patient has been no behavioral problem over the last 2 days. Case discussed with counselor. On my examination today, the patient seems very relevant and appropriate in conversation. Her registration is 5 items out of 5, and she is able to recall 5 items after 3 minutes. She is oriented to person, place and date. Remembers visiting with family over the weekend. Still reports that she is amnestic as to the circumstances of her presentation here. She denies any audiovisual hallucinations. She does have some ongoing mood lability, although this too is improved versus admission. No side effects from medications. No physical complaints. Remains fairly discharge focused. Review of Systems Except as stated in HPI: all other systems reviewed are Neg Mental Status Examination Appearance: Appropriate Consciousness: Alert Orientation: Person, Place, Date/Time Motor Activity: Other (no motoric abnormalities noted) Speech: Unremarkable Language: Adequate Fund of Knowledge: Adequate Attention and Concentration: Adequate Memory: Impaired (retrograde amnesia reportedly persists, although the patient doesn't seem to have an ongoing anterograde deficit.) Mood: Other (calmer) Affect: Labile (mild) Thought Process & Associations: Linear, Other (somewhat perseverative on discharge) Thought Content: Other (fairly appropriate overall) Hallucination Type: None Delusion Type: None Suicidal Ideation: No Suicidal Plan: No Suicidal Intention: No Homicidal Ideation: No Homicidal Plan: No Homicidal Intention: No Insight: Poor (perhaps improving somewhat) Judgment: Poor Results Labs Date/Time Source Procedure Growth Status 04/24/17 06:40 Urine Random Urine Urine Culture - Final 50-100,000 CFU/ML MIXED GRAM POSITIVE... Complete Labs reviewed. Lupus anticoagulant and MARCELL are still pending. Dr. Savage from neurology has also ordered urine porphyrins. Last Impressions Brain MRI 04/29/17 0000 Signed Impressions: Service Date/Time: Saturday, April 29, 2017 18:08 - CONCLUSION: No acute disease. Jacob Neil MD Head CT 04/24/17 0000 Signed Impressions: Service Date/Time: Monday, April 24, 2017 07:59 - CONCLUSION: Normal examination. Jaron Barr MD EEG read as normal. Vitals/IOs Vital Signs Date Time Temp Pulse Resp B/P (MAP) Pulse Ox O2 Delivery O2 Flow Rate FiO2 05/01/17 18:07 96.0 69 17 113/66 (82) 99 Assessment & Plan Problem List: (1) Brief psychotic disorder ICD Codes: F23 - Brief psychotic disorder (2) Retrograde amnesia ICD Codes: R41.2 - Retrograde amnesia Assessment & Plan Titrate Zyprexa to 5mg/15mg to target residual symptoms. Patient overall is improving, and we could consider discharge within the next few days. I will discontinue her one-to-one. Continue to monitor on the inpatient unit. Continue other medications and care as ordered. Justification for Cont. Inpt. Med changes. Risk for decompensation in less restrictive environment. Discharge Planning Anticipate discharge within the next 1-3 days. Request HC Surrog/Guard Advoc?: Yes Cristian Lozano MD May 02, 2017 10:31
[2017-05-02 16:54] VITALS: BP 112/55; PULSE 79; RESP 18; TEMP 97.5; O2SAT 100
[2017-05-02] MEDS ORDERED: OLANZapine ODT 15 MG TAB PO SCH (21:00)
[2017-05-02 21:30] VITALS: BP 102/55; PULSE 58; RESP 16; TEMP 98.2; O2SAT 100
[2017-05-03 06:37] VITALS: BP 98/53; PULSE 58; RESP 16; TEMP 98; O2SAT 99
[2017-05-03] MEDS: OLANZapine ODT 5 MG TAB PO SCH (08:55)
[2017-05-03] MEDS: CHOLECALCIFEROL (VIT D3) 1000 UNIT TAB PO SCH (08:55)
--- NOTE | 2017-05-03 09:39 | PD.TTN ---
Patient Problems 1. Discharge planning 2. Medication compliance 3. Knowledge deficit 4. Lack of coping skills Progress Toward Goals Provider Present: Dr. Luis Alfredo Lozano Provider Input: 04-25-17 - Patient appears to be responding to internal stimuli. She has a history of one prevous psychiatric admission in [facility]. Pt is new to the unit and will be evaluated including medication regiment. 04/29/17 Pt is a vulnerable, Physician is treating psychotic d/o. She can return home to family upon discharge. 05/03 Patient has had improvement but does continue to have amensia in regards to her admission. Patient was unable to recieve psychatric medication due to blood pressure. Patient will be monitored today in regards to possible discharge today or tomorrow pending behavior. Nurse(s) Present: Pacheco Nurse(s) Input: Pt is new to the unit and is being evaluated and monitored. 05/03 patient is noted to be more relaxed on the unit and is tolerating medications. Patient is attending to ADLs and is denying suicidal/homicidal ideations currently. Psychiatric Counselors Present: TIMO Riley, DEE Alvarenga Psych Therapist Input: Patient is unable to reach her family and can not recall anything except that she has two kids. Patient is afraid to be in her room. Pt is new and will be evaluated using biopsychosocial assessment. 05/03 patient has been in contact with brother, whom believes patient is doing better. Per brother's report, patient is able to answer questions appropriately. Counselor will find out information in regards to discharge, pending where patient's children are and informing DCF about patient's pending discharge back to home. Group Spec/RT/OT/ORELLANA Present: Kasey Boothe, ANNA, REYNA Rader Group Spec/RT/OT/ORELLANA Input: 04-26-17 - Patient does not participate. Pt is new and will be encouraged to attend unit activities. Pt will be evaluated as well. 05/03 Patient comes out to group and is appropriate. 04/29/17 Pt is attending group. Discharge Plan SMA Discharged planning will be finalized further as pt treatment continues. Documentation Scribe: TIMO Riley, DEE Handley Date Resolved: Apr 26, 2017 Teresa SharmaI May 03, 2017 09:39
[2017-05-03] MEDS ORDERED: ZYPR10TA PO (11:35)
[2017-05-03] MEDS ORDERED: ZYPR5TAB PO (11:35)
[2017-05-03] MEDS ORDERED: CHOL1000 PO (11:35)
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
== END 2017-05-03 15:50 | disposition home or self-care (01) | DRG 885 ==
LOC: NEPD 06:31 → NEDA 12:33 → H270 14:15 → H260 04-27 12:00
PROVIDERS: ADMIT Psychiatry & Neurology Psychiatry; ATTEND Psychiatry & Neurology Psychiatry
DX: F23 Brief psychotic disorder (principal); R45.851 Suicidal ideations; E87.6 Hypokalemia; R41.2 Retrograde amnesia; R82.99 Other abnormal findings in urine
CPT/HCPCS: 70450; 70553; 80048; 80053; 80061; 80307; 81001; 82306; 82607; 83036; 83735; 84110; 84120; 84443; 84702; 84703; 85025; 85027; 85613; 85652; 85730; 86038; 86592; 86703; 87086; 93005; 95819; A9579; J2060; Q0163